=== PATIENT | male | born 1970 | race Caucasian/White ===

== ENCOUNTER 2017-10-09 10:09 | Emergency (ER) | payer OTHER ==
[2017-10-09] MEDS ORDERED: Albuterol/Ipratropium 3.0-0.5 MG/3 ML Neb Soln NEB ONE (10:23)
[2017-10-09] MEDS ORDERED: methylPREDNISolone Sodium Succinate 125 MG/2 ML SDV IM ONE (10:23)
--- NOTE | 2017-10-09 10:24 | EDM.PDOC ---
ED HPI GENERAL MEDICAL PROBLEM - General Chief Complaint: Respiratory Problem Stated Complaint: FEVER AND COLD Time Seen by Provider: 10/09/17 10:24 Source of Information: Reports: Patient - History of Present Illness INITIAL COMMENTS - FREE TEXT/NARRATIVE: HISTORY AND PHYSICAL: History of present illness: [Patient presents with cough increasing in severity over the last week he has a pneumonia exposure through his possible states they shared a mass for ventilation which causes him concern he has no fever nausea vomiting chills sweats no chest pain no diaphoresis no headache dizziness or palpitation no bowel or urine symptoms ] patient is nicotine dependent smoking 1 pack of cigarettes daily Review of systems: As per history of present illness and below otherwise all systems reviewed and negative. Past medical history: As per history of present illness and as reviewed below otherwise noncontributory. Surgical history: As per history of present illness and as reviewed below otherwise noncontributory. Social history: No reported history of drug or alcohol abuse. Family history: As per history of present illness and as reviewed below otherwise noncontributory. Physical exam: HEENT: Atraumatic, normocephalic, pupils reactive, negative for conjunctival pallor or scleral icterus, mucous membranes moist, throat clear, neck supple, nontender, trachea midline. Lungs: Clear to auscultation, breath sounds equal bilaterally, chest nontender. post DuoNeb and Solu-Medrol Heart: S1S2, regular, negative for clicks, rubs, or JVD. Abdomen: Soft, nondistended, nontender. Negative for masses or hepatosplenomegaly. Negative for costovertebral tenderness. Pelvis: Stable nontender. Genitourinary: Deferred. Rectal: Deferred. Extremities: Atraumatic, negative for cords or calf pain. Neurovascular unremarkable. Neuro: Awake, alert, oriented. Cranial nerves II through XII unremarkable. Cerebellum unremarkable. Motor and sensory unremarkable throughout. Exam nonfocal. Diagnostics: [Nursing staff had ordered EKG on arrival per protocol however patient refused Chest 2 views ] Therapeutics: [DuoNeb Solu-Medrol 125 mg IM ] Z-Zev Medrol Dosepak HFA Impression: [ acute bronchitis ] Definitive disposition and diagnosis as appropriate pending reevaluation and review of above. headache and chest tightness Pain Score (Numeric/FACES): 4 - Related Data Allergies Allergy/AdvReac Type Severity Reaction Status Date / Time No Known Allergies Allergy Verified 10/09/17 10:23 Home Meds: Home Meds Lisinopril/Hydrochlorothiazide [Lisinopril-Hctz 20-12.5 mg Tab] 1 each PO DAILY 10/09/17 [History] ED ROS GENERAL - Review of Systems Review Of Systems: ROS reveals no pertinent complaints other than HPI. ED EXAM, GENERAL - Physical Exam Exam: See Below Course - Vital Signs Last Recorded V/S: Last Vital Signs Temp 97.3 F 10/09/17 10:10 Pulse 99 10/09/17 10:10 Resp 20 10/09/17 10:10 BP 150/87 H 10/09/17 10:10 Pulse Ox 98 10/09/17 10:24 - Orders/Labs/Meds Orders: Active Orders 24 hr Category Date Time Status RT Aerosol Therapy [RC] ASDIRECTED Care 10/09/17 10:24 Active Chest 2V [CR] Stat Exams 10/09/17 10:21 Taken Meds: Medications Discontinued Medications Generic Name Dose Route Start Last Admin Trade Name Gini PRN Reason Stop Dose Admin Albuterol/Ipratropium 3 ml 10/09/17 10:23 10/09/17 10:28 Duoneb 3.0-0.5 Mg/3 Ml NEB 10/09/17 10:24 3 ml ONETIME ONE Administration Methylprednisolone Sodium Succinate 125 mg 10/09/17 10:23 10/09/17 10:28 Solu-Medrol IM 10/09/17 10:24 125 mg ONETIME ONE Administration Departure - Departure Time of Disposition: 11:15 Disposition: Home, Self-Care 01 Condition: Good Clinical Impression: Bronchitis - Discharge Information Referrals: PCP,None [Primary Care Provider] - Forms: ED Department Discharge Additional Instructions: The following information is given to patients seen in the emergency department who are being discharged to home. This information is to outline your options for follow-up care. We provide all patients seen in our emergency department with a follow-up referral. The need for follow-up, as well as the timing and circumstances, are variable depending upon the specifics of your emergency department visit. If you don't have a primary care physician on staff, we will provide you with a referral. We always advise you to contact your personal physician following an emergency department visit to inform them of the circumstance of the visit and for follow-up with them and/or the need for any referrals to a consulting specialist. The emergency department will also refer you to a specialist when appropriate. This referral assures that you have the opportunity for follow-up care with a specialist. All of these measure are taken in an effort to provide you with optimal care, which includes your follow-up. Under all circumstances we always encourage you to contact your private physician who remains a resource for coordinating your care. When calling for follow-up care, please make the office aware that this follow-up is from your recent emergency room visit. If for any reason you are refused follow-up, please contact the [facility] emergency department at and asked to speak to the emergency department charge nurse. - My Orders Last 24 Hours: My Active Orders 10/09/17 10:21 Chest 2V [CR] Stat 10/09/17 10:24 RT Aerosol Therapy [RC] ASDIRECTED - Assessment/Plan Last 24 Hours: My Active Orders 10/09/17 10:21 Chest 2V [CR] Stat 10/09/17 10:24 RT Aerosol Therapy [RC] ASDIRECTED
--- NOTE | 2017-10-10 11:36 | CR ---
EXAM DATE: 10/09/17 PATIENT'S AGE: 47 Patient: KEYSHA OSBORNE Facility: [place], [place] Site . Site : 1970 Study: XRay Chest [id number]/6/2018 11:02:49 AM Ordering Physician: Fabiana Núñez Final Report: INDICATION: pain/sob TECHNIQUE: PA and lateral chest films are submitted. COMPARISON: None. FINDINGS: Heart size and pulmonary vasculature within normal limits. Lung car are clear. IMPRESSION: No active disease. Dictated by Shaji Dykes MD @ 10/09/2017 11:10:15 AM Dictated by: Shaji Dykes MD @ 10/09/2017 11:10:26 (Electronic Signature) Report Signed by Proxy. [facility]
== END 2017-10-09 11:26 | disposition home or self-care (01) ==
LOC: MW.ED 10:09
DX: J20.9 Acute bronchitis, unspecified (principal); F17.210 Nicotine dependence, cigarettes, uncomplicated; Z79.899 Other long term (current) drug therapy
CPT/HCPCS: 71046; 94640; 96372; 99283; J2930

== ENCOUNTER 2017-12-05 20:29 | Emergency (ER) | payer OTHER ==
--- NOTE | 2017-12-05 20:36 | EDM.PDOC ---
ED HPI GENERAL MEDICAL PROBLEM - General Chief Complaint: Lower Extremity Injury/Pain Stated Complaint: RIGHT KNEE PAIN Time Seen by Provider: 12/05/17 20:36 Source of Information: Reports: Patient History Limitations: Reports: No Limitations - History of Present Illness INITIAL COMMENTS - FREE TEXT/NARRATIVE: HISTORY AND PHYSICAL: History of present illness: 47-year-old male presenting to emergency department with right knee pain 3 days with past medical history of hypertension. Patient states he was in [place] over the weekend. States that they were walking around and when he got out of the car at [employer] he noticed that immediately after he had some mild right knee pain. He does not remember any trauma to the knee. States that he walked around [place] and around other casinos throughout the rest of the day with only mild right knee pain. The next morning he woke up and his knee was swollen with more pain and he was barely able to walk. He drove back here yesterday. States that he's had continued pain and swelling in the right knee. He has not taken anything for it. He denies any decreased strength, sensation, calf pain or history of coagulopathies. Denies any shortness of breath, chest pain, palpitations, syncopal episodes, or focal neurologic deficits. States that he was not drinking when he hurt his knee. Denies any previous injury to the knee. On exam there is significant swelling to the right knee as compared to the left. Patient is tender directly on the top of the patella as well as the medial tibial plateau and lateral tibial plateau. Difficult to examine secondary to increased swelling and pain with movement. No obvious joint instability however difficult to examine secondary to pain and swelling. Neurovascular intact, limited range of motion secondary to pain and swelling. No decrease in strength. Review of systems: As per history of present illness and below otherwise all systems reviewed and negative. Past medical history: As per history of present illness and as reviewed below otherwise noncontributory. Surgical history: As per history of present illness and as reviewed below otherwise noncontributory. Social history: No reported history of drug or alcohol abuse. Family history: As per history of present illness and as reviewed below otherwise noncontributory. Physical exam: HEENT: Atraumatic, normocephalic, pupils reactive, negative for conjunctival pallor or scleral icterus, mucous membranes moist, throat clear, neck supple, nontender, trachea midline. Lungs: Clear to auscultation, breath sounds equal bilaterally, chest nontender. Heart: S1S2, regular, negative for clicks, rubs, or JVD. Abdomen: Soft, nondistended, nontender. Negative for masses or hepatosplenomegaly. Negative for costovertebral tenderness. Pelvis: Stable nontender. Genitourinary: Deferred. Rectal: Deferred. Extremities: Atraumatic, negative for cords or calf pain. Neurovascular unremarkable. Neuro: Awake, alert, oriented. Cranial nerves II through XII unremarkable. Cerebellum unremarkable. Motor and sensory unremarkable throughout. Exam nonfocal. Diagnostics: Right knee x-ray Therapeutics: Tordol 60 mg IM 1, meloxicam 15 mg by mouth daily #12, knee brace Impression: Right knee strain Plan: X-rays did not show any obvious bony abnormalities and I suspect that there was a strain/mild ligamental injury. As above very difficult to examine secondary to swelling and pain. Instructed patient to use rest, ice, compression, and elevation. Did give him a prescription for meloxicam 15 mg by mouth daily as well as referred him to be seen by orthopedics. He should call them tomorrow and tell them he was seen in emergency department and they wish for follow-up as soon as possible. Patient was in complete understanding and is told to return to emergency department if he had any new worsening symptoms. He was also given a work excuse. Right Knee Pain Score (Numeric/FACES): 8 - Related Data Allergies Allergy/AdvReac Type Severity Reaction Status Date / Time No Known Allergies Allergy Verified 10/09/17 10:23 Home Meds: Home Meds Lisinopril/Hydrochlorothiazide [Lisinopril-Hctz 20-12.5 mg Tab] 1 each PO DAILY 10/09/17 [History] Past Medical History Cardiovascular History: Reports: Hypertension - Infectious Disease History Infectious Disease History: Reports: None Social & Family History - Family History Family Medical History: Noncontributory Review of Systems - Review of Systems Review Of Systems: ROS reveals no pertinent complaints other than HPI. ED EXAM, GENERAL - Physical Exam Exam: See Below Course - Vital Signs Last Recorded V/S: Last Vital Signs Temp 98.2 F 12/05/17 20:45 Pulse 107 H 07/02/18 20:45 Resp 18 12/05/17 20:45 BP 149/105 H 12/05/17 20:45 Pulse Ox 96 12/05/17 20:45 - Orders/Labs/Meds Orders: Active Orders 24 hr Category Date Time Status Knee 3V Rt [CR] Stat Exams 12/05/17 20:55 Taken Meds: Medications Discontinued Medications Generic Name Dose Route Start Last Admin Trade Name Freq PRN Reason Stop Dose Admin Ketorolac Tromethamine 60 mg 12/05/17 21:05 12/05/17 21:31 Toradol IM 12/05/17 21:06 60 mg ONETIME ONE Administration Departure - Departure Time of Disposition: 22:16 Disposition: Home, Self-Care 01 Condition: Good Clinical Impression: Strain of right knee Qualifiers: Encounter type: initial encounter Qualified Code(s): S86.911A - Strain of unspecified muscle(s) and tendon(s) at lower leg level, right leg, initial encounter - Discharge Information Referrals: PCP,None [Primary Care Provider] - Forms: ED Department Discharge Additional Instructions: My general discharge The following information is given to patients seen in the emergency department who are being discharged to home. This information is to outline your options for follow-up care. We provide all patients seen in our emergency department with a follow-up referral. The need for follow-up, as well as the timing and circumstances, are variable depending upon the specifics of your emergency department visit. If you don't have a primary care physician on staff, we will provide you with a referral. We always advise you to contact your personal physician following an emergency department visit to inform them of the circumstance of the visit and for follow-up with them and/or the need for any referrals to a consulting specialist. The emergency department will also refer you to a specialist when appropriate. This referral assures that you have the opportunity for follow-up care with a specialist. All of these measure are taken in an effort to provide you with optimal care, which includes your follow-up. Under all circumstances we always encourage you to contact your private physician who remains a resource for coordinating your care. When calling for follow-up care, please make the office aware that this follow-up is from your recent emergency room visit. If for any reason you are refused follow-up, please contact the [facility] Emergency Department at and asked to speak to the emergency department charge nurse. [facility] [address], [address] [place] [address] Please call number above and stated that you were seen in the emergency department and they wish for you to have a follow-up for your right knee. Take medication as prescribed. Use rice as we discussed. Rest, ice, compression, elevation as well as anti- inflammatories. Return to emergency department if any new or worsening symptoms. - My Orders Last 24 Hours: My Active Orders 12/05/17 20:55 Knee 3V Rt [CR] Stat - Assessment/Plan Last 24 Hours: My Active Orders 12/05/17 20:55 Knee 3V Rt [CR] Stat
[2017-12-05] MEDS ORDERED: Ketorolac 60 MG/2 ML SDV IM ONE (21:05)
--- NOTE | 2017-12-06 09:16 | CR ---
EXAM DATE: 12/05/17 PATIENT'S AGE: 47 Patient: KEYSHA OSBORNE Facility: [place], [place] Site . Site : 1970 Study: XRay Knee Right [id number]/2/2018 9:32:14 PM Ordering Physician: Asael Mar Final Report: INDICATION: pain TECHNIQUE: Three views of the right knee COMPARISON: None FINDINGS: Bones: No fractures or bone lesions. Joint spaces: Unremarkable. Soft tissues: Prepatellar soft tissue swelling. IMPRESSION: Prepatellar soft tissue swelling. No acute bony abnormality Dictated by Hakeem Salinas MD @ 12/05/2017 10:01:01 PM Dictated by: Hakeem Salinas MD @ 12/05/2017 22:01:07 (Electronic Signature) Report Signed by Proxy. [facility]
== END 2017-12-05 22:23 | disposition home or self-care (01) ==
LOC: MW.ED 20:29
DX: S86.911A Strain of unspecified muscle(s) and tendon(s) at lower leg level, right leg, initial encounter (principal); I10 Essential (primary) hypertension; X58.XXXA Exposure to other specified factors, initial encounter
CPT/HCPCS: 73562; 96372; 99283; J1885; 99282

== ENCOUNTER 2018-03-13 07:00 | Day surgery (SDC) | payer OTHER ==
[~2018-03-13 07:00] MED LIST: Lactated Ringers 1,000 ML IV SCH; Lidocaine 2% 5 ML SDV ONE; Midazolam 1 MG/ML 2 ML SDV ONE; Ondansetron 4 MG/2 ML SDV ONE; Propofol 200 MG/20 ML SDV ONE; fentaNYL 250 MCG/5 ML SDV ONE
[2018-03-13] MEDS ORDERED: Sodium Chloride 0.9% 2.5 ML Syringe FLUSH PRN (07:05)
[2018-03-13] MEDS ORDERED: Sodium Chloride 0.9% 10 ML Syringe FLUSH PRN (07:05)
[2018-03-13] MEDS ORDERED: fentaNYL 100 MCG/2 ML SDV IVPUSH PRN (07:05)
[2018-03-13] MEDS ORDERED: ceFAZolin 2 GM in Premix Bag 1 BAG IV SCH (08:00)
[2018-03-13] MEDS ORDERED: Acetaminophen/HYDROcodone 325-5 MG Tab PO PRN (08:00)
--- NOTE | 2018-03-13 08:32 | PCM.PREANE ---
Preanesthetic Assessment - Procedure Proposed Procedure: Right knee arthroscopy - Anesthesia/Transfusion/Family Hx Anesthesia History: No Prior Anesthesia Family History of Anesthesia Reaction: No Transfusion History: No Prior Transfusion(s) Intubation History: Unknown Additional History: sleep apnea suspected by patient - Review of Systems General: Other (obesity) Pulmonary: Other (smoker 1+ pack per day) Cardiovascular: Other (HTN/HLD) Gastrointestinal: No Symptoms Neurological: Gait Disturbance (due to right knee), Other (hearing impairment) Other: Reports: Diabetes (type II - chose no treatments) - Physical Assessment NPO Status Date: 03/12/18 NPO Status Time: 20:00 O2 Sat by Pulse Oximetry: 95 Respiratory Rate: 18 Vital Signs: Last Vital Signs Temp 97.0 F 03/13/18 07:55 Pulse 88 03/13/18 07:55 Resp 18 03/13/18 07:55 BP 136/100 H 03/13/18 07:55 Pulse Ox 95 03/13/18 07:55 Height: 5 ft 9 in Weight: 230 lb ASA Class: 3 Mental Status: Alert & Oriented x3 Airway Class: Mallampati = 3 Dentition: Reports: Normal Dentition, Caries Thyro-Mental Finger Breadths: 3 Mouth Opening Finger Breadths: 3 ROM/Head Extension: Limited/Partial (short ,full neck) Lungs: Clear to Auscultation, Normal Respiratory Effort Cardiovascular: Regular Rate, Regular Rhythm - Allergies Allergies/Adverse Reactions: Allergies Allergy/AdvReac Type Severity Reaction Status Date / Time No Known Allergies Allergy Verified 03/09/18 16:26 - Blood Blood Available: No Product(s) Available: None - Anesthesia Plan Pre-Op Medication Ordered: None - Acknowledgements Anesthesia Type Planned: General Anesthesia (LMA vs OET) Pt an Appropriate Candidate for the Planned Anesthesia: Yes Alternatives and Risks of Anesthesia Discussed w Pt/Guardian: Yes Pt/Guardian Understands and Agrees with Anesthesia Plan: Yes PreAnesthesia Questionnaire HEENT History: Reports: Hard of Hearing, Other (See Below) Other HEENT History: wears glasses Cardiovascular History: Reports: Heart Murmur, Hypertension Respiratory History: Reports: Other (See Below) Other Respiratory History: thinks he might have sleep apnea Endocrine/Metabolic History: Reports: Diabetes, Type II, Obesity/BMI 30+ Other Endocrine/Metabolic History: is trying to control diabetes with diet and exercise - Infectious Disease History Infectious Disease History: Reports: None - SUBSTANCE USE Smoking Status *Q: Current Every Day Smoker Tobacco Use Within Last Twelve Months: Cigarettes Recreational Drug Use History: No - HOME MEDS Home Medications: Home Meds Lisinopril/Hydrochlorothiazide [Lisinopril-Hctz 20-12.5 mg Tab] 1 each PO BID [History] Fish Oil/[place]-3 Fatty Acids [Fish Oil 1,000 MG] 2 gm PO BID 03/09/18 [History] Sildenafil Citrate [Sildenafil] 100 mg PO ASDIRECTED PRN 03/09/18 [History] - CURRENT (IN HOUSE) MEDS Current Meds: Current Medications Hydrocodone Bitart/Acetaminophen ([place] 325-5 Mg) 1 - 2 tab PO Q4H PRN PRN Reason: Pain Fentanyl (Sublimaze) 50 mcg IVPUSH Q5M PRN PRN Reason: Pain (severe 7-10) Stop: 03/14/18 07:05 Cefazolin Sodium/Dextrose 2 gm (/ Premix) 50 mls @ 100 mls/hr IV ONCALL VALORIE Lactated Ringer's (Ringers, Lactated) 1,000 mls @ 100 mls/hr IV ASDIRECTED VALORIE Last Admin: 03/13/18 08:09 Dose: 100 mls/hr Sodium Chloride (Saline Flush) 10 ml FLUSH ASDIRECTED PRN PRN Reason: Keep Vein Open Sodium Chloride (Saline Flush) 2.5 ml FLUSH ASDIRECTED PRN PRN Reason: Keep Vein Open Discontinued Medications Fentanyl (Sublimaze) Confirm Administered Dose 250 mcg .ROUTE .STK-MED ONE Stop: 03/13/18 06:45 Lidocaine (Xylocaine-Mpf 2%) Confirm Administered Dose 5 ml .ROUTE .STK-MED ONE Stop: 03/13/18 06:45 Midazolam HCl (Versed 1 Mg/Ml) Confirm Administered Dose 2 mg .ROUTE .STK-MED ONE Stop: 03/13/18 06:45 Ondansetron HCl (Zofran) Confirm Administered Dose 4 mg .ROUTE .STK-MED ONE Stop: 03/13/18 06:45 Propofol (Diprivan 20 Ml) Confirm Administered Dose 200 mg .ROUTE .STK-MED ONE Stop: 03/13/18 06:45
[2018-03-13] MEDS ORDERED: Sodium Chloride 0.9% 20 ML ONE (09:05)
[2018-03-13] MEDS ORDERED: ceFAZolin 1 GM Vial ONE (09:05)
[2018-03-13] MEDS ORDERED: ePHEDrine 50 MG/ML SDV ONE (09:09)
--- NOTE | 2018-03-13 09:35 | PCM.OPNOTE ---
- General Post-Op/Procedure Note Date of Surgery/Procedure: 03/13/18 Operative Procedure(s): R knee arthroscopy with chondroplasty of the medial femoral condyle and limited synovectomy with excision of medial plica and fat pad Pre Op Diagnosis: R knee medial mensicus tear, fat pad impingement Post-Op Diagnosis: R knee DJD, medial plica Anesthesia Technique: General LMA Primary Surgeon: Radha Manjarrez Molder Inflated Ball: Nel Ha in mLs: 5 Condition: Good Free Text/Narrative:: TT=12 MIN # [id number]
--- NOTE | 2018-03-13 09:38 | PCM.POSTAN ---
POST ANESTHESIA ASSESSMENT - MENTAL STATUS Mental Status: Alert, Oriented - RESPIRATORY Respiratory Status: Respiratory Rate WNL, Airway Patent, O2 Saturation Stable - CARDIOVASCULAR CV Status: Pulse Rate WNL, Blood Pressure Stable - GASTROINTESTINAL GI Status: No Symptoms - POST OP HYDRATION Hydration Status: Adequate & Stable
--- NOTE | 2018-03-13 10:44 | PCM48HPAN ---
Post Anesthesia Note - EVALUATION WITHIN 48HRS OF ANESTHETIC Vital Signs in Normal Range: Yes Patient Participated in Evaluation: Yes Respiratory Function Stable: Yes Airway Patent: Yes Cardiovascular Function Stable: Yes Hydration Status Stable: Yes Pain Control Satisfactory: Yes Nausea and Vomiting Control Satisfactory: Yes Mental Status Recovered: Yes Resp Rate: 15 - COMMENTS/OBSERVATIONS Free Text/Narrative:: OK for discharge to home accompanied.
--- NOTE | 2018-03-13 11:19 | OR ---
SURGEON: Radha Manjarrez MD DATE OF PROCEDURE: 03/13/2018 PREOPERATIVE DIAGNOSES: 1. Right knee medial meniscus tear. 2. Right knee fat pad impingement. POSTOPERATIVE DIAGNOSES: 1. Right knee degenerative joint disease. 2. Right knee medial plica with fat pad impingement. PROCEDURE: Right knee arthroscopy with chondroplasty of the medial femoral condyle and limited synovectomy with excision of medial plica and fat pad. PANEL MACHINE OPERATOR: Nel Ha PA-C ANESTHESIA: General. ESTIMATED BLOOD LOSS: 5 mL. TOURNIQUET TIME: 12 minutes. COMPLICATIONS: None. DVT PROPHYLAXIS: Not indicated. IMPLANTS USED: None. BRIEF HISTORY: Ilya is a 47-year-old male who has had complaint of progressive right knee pain. An MRI did show a possible tear of the medial meniscus along with evidence of fat pad impingement. Due to his lack of response to conservative treatment, I did recommend surgical intervention. The risks and goals of procedure were discussed with the patient and were documented preoperatively. He agreed to proceed. DESCRIPTION OF PROCEDURE: The patient was properly identified and brought to the operating room. He was transferred from the OR cart and placed on the operating room table in supine position. General anesthesia was administered. After adequate anesthesia was obtained, a well-padded tourniquet was applied to the right lower extremity. The right lower extremity was then prepped in standard fashion using ChloraPrep solution. It was then sterilely draped. A time-out was performed to ensure correct site and procedure. Preoperative antibiotics were given. The surgical site had been marked preoperatively. An Esmarch was used to exsanguinate the right lower extremity and the tourniquet was inflated to 250 mmHg. A lateral portal arthrotomy was established. Blunt trocar and cannula were introduced into the suprapatellar pouch. Camera, inflow, and outflow were assembled. The suprapatellar pouch showed no significant synovitis. The patellofemoral joint was visualized. Minor degenerative changes were noted with no full-thickness cartilage loss. The patella appeared to track centrally. The fat pad did impinge within the patellofemoral joint with flexion and extension of the knee. I then extended down the lateral gutter. No loose bodies were identified. As I attempted to extend down the medial gutter, it was found that he had a remnant of a medial plica. This appeared to be causing some impingement along the medial femoral condyle. I then examined the medial gutter and no loose bodies were identified. I then entered the medial compartment. A medial portal arthrotomy was established. A blunt probe was inserted. The meniscus was extensively probed. Although, there was minor degenerative fraying centrally, no full-thickness tear was appreciated. There was no evidence of instability. The medial femoral condyle showed diffuse grade 3 chondromalacia along the weightbearing surface with some loose cartilage flaps. A 4.5 mm shaver was used to perform a chondroplasty and remove the loose pieces of cartilage. The medial tibial plateau showed diffuse grade 2 degenerative changes. I then entered the notch. Both the ACL and PCL were visualized and probed and found to be intact. I then entered the lateral compartment. He did have some superficial fissuring of the lateral tibial plateau; however, these were probed and found to be not full thickness. The meniscus showed no significant degenerative findings and no evidence of instability or tearing. I then went back to the suprapatellar pouch. The shaver was used to resect the portion of the fat pad that appeared to be impinging. The medial plica was also resected without difficulty. There were some mild degenerative changes beneath the medial femoral condyle, presumed to be due to the plica. Instruments were then removed from the knee. The portal sites were closed with 3-0 nylon. 1% Lidocaine was injected along the portal tracts. Xeroform gauze was placed over the wound and a bulky dressing was applied. The tourniquet was then deflated. He was awakened from his anesthetic and transferred back to the operating room cart. He was brought to recovery room in stable condition. All needle and sponge counts were correct. SAWYER / JEROME /[id number]
== END 2018-03-13 10:50 | disposition home or self-care (01) ==
LOC: MW.SDS 07:00
PROVIDERS: ATTEND Orthopaedic Surgery
DX: M23.203 Derangement of unspecified medial meniscus due to old tear or injury, right knee (principal); M79.4 Hypertrophy of (infrapatellar) fat pad; M67.51 Plica syndrome, right knee; M94.261 Chondromalacia, right knee; I10 Essential (primary) hypertension; E11.9 Type 2 diabetes mellitus without complications; E78.5 Hyperlipidemia, unspecified; F17.210 Nicotine dependence, cigarettes, uncomplicated; E66.9 Obesity, unspecified
CPT/HCPCS: 29875; J0690; J2250; J2405; J2704; J3010; J7120; 01400

== ENCOUNTER 2019-05-15 12:39 | Emergency (ER) | payer OTHER ==
[2019-05-15] MEDS ORDERED: Albuterol/Ipratropium 3.0-0.5 MG/3 ML Neb Soln NEB ONE (12:55)
--- NOTE | 2019-05-15 12:55 | EDM.PDOC ---
ED HPI GENERAL MEDICAL PROBLEM - General Chief Complaint: General Stated Complaint: HURT LFT SIDE IN RIB AREA Time Seen by Provider: 05/15/19 12:46 Source of Information: Reports: Patient History Limitations: Reports: No Limitations - History of Present Illness INITIAL COMMENTS - FREE TEXT/NARRATIVE: HISTORY AND PHYSICAL: History of present illness: Patient is a 49 year old male who presents to the ED with c/o left rib pain. He states he was outside and felt a sharp pain to his left lower anterior chest after aggressively coughing. Since he has had pain with movement, deep breathing , and coughing. He is a daily, mcfp smoker. Patient denies any fever, chills, headache, change in vision, syncope or near syncope. Denies any chest pain, back pain, or shortness of breath. Denies any abdominal pain, nausea, vomiting, diarrhea, constipation or dysuria. Has not noted any blood in urine or stool. Patient has been eating and drinking appropriately. Review of systems: As per history of present illness and below otherwise all systems reviewed and negative. Past medical history: As per history of present illness and as reviewed below otherwise noncontributory. Surgical history: As per history of present illness and as reviewed below otherwise noncontributory. Social history: See social history for further information Family history: As per history of present illness and as reviewed below otherwise noncontributory. Physical exam: General: Well developed and well nourished 49 year old male. A&O x 3. Nontoxic appearing and in no acute distress. HEENT: Atraumatic, normocephalic, pupils equal and reactive bilaterally, negative for conjunctival pallor or scleral icterus, mucous membranes moist, TMs normal bilaterally, throat clear, neck supple, nontender, trachea midline. No drooling or trismus noted. No meningeal signs. No hot potato voice noted. Lungs: Fine expiratory wheezing to bases bilaterally/diminished, breath sounds equal bilaterally, anterior left lower chest painful to palpation. Heart: S1S2, regular rate and rhythm without overt murmur Abdomen: Soft, nondistended, nontender. Negative for masses or hepatosplenomegaly. Negative for costovertebral tenderness. Pelvis: Stable nontender. Skin: Intact, warm, dry. No lesions or rashes noted. Extremities: Atraumatic, moves all extremities per self without difficulty or deficits, negative for cords or calf pain. Neurovascular unremarkable. Neuro: Awake, alert, oriented. Cranial nerves II through XII unremarkable. Cerebellum unremarkable. Motor and sensory unremarkable throughout. Exam nonfocal. Notes: Patient refused duo-neb. CXR and labs are unremarkable. Due to his longstanding smoking history and vitals, will give abx. We discussed signs and symptoms that would prompt him to return to the ED. Supportive care measures were reviewed and discussed. Voices understanding and is agreeable to plan of care. Denies any further questions or concerns at this time. Diagnostics: CBC, CMP, D.Dimer, CXR Therapeutics: Duo Neb Prescription: Zpak Pro- Air Impression: Bronchitis Plan: 1. Stop Smoking 2. Take medications as prescribed. 3. Follow up with your primary care provider. Return to the ED as needed as discussed. Definitive disposition and diagnosis as appropriate pending reevaluation and review of above. Left Abdomen Pain Score (Numeric/FACES): 8 - Related Data Allergies Allergy/AdvReac Type Severity Reaction Status Date / Time No Known Allergies Allergy Verified 05/15/19 12:43 Home Meds: Home Meds Lisinopril/Hydrochlorothiazide [Lisinopril-Hctz 20-12.5 mg Tab] 1 each PO BID [History] Fish Oil/Easton-3 Fatty Acids [Fish Oil 1,000 MG] 2 gm PO BID 03/09/18 [History] Sildenafil Citrate 100 mg PO ASDIRECTED PRN 03/09/18 [History] Past Medical History HEENT History: Reports: Hard of Hearing, Other (See Below) Other HEENT History: wears glasses Cardiovascular History: Reports: Heart Murmur, Hypertension Respiratory History: Reports: Other (See Below) Other Respiratory History: thinks he might have sleep apnea Endocrine/Metabolic History: Reports: Diabetes, Type II, Obesity/BMI 30+ Other Endocrine/Metabolic History: is trying to control diabetes with diet and exercise - Infectious Disease History Infectious Disease History: Reports: Chicken Pox - Past Surgical History Musculoskeletal Surgical History: Reports: Other (See Below) Other Musculoskeletal Surgeries/Procedures:: Right knee surgery Social & Family History - Family History Family Medical History: Noncontributory - Tobacco Use Smoking Status *Q: Current Every Day Smoker Years of Tobacco use: 20 Packs/Tins Daily: 2 - Caffeine Use Caffeine Use: Reports: Tea - Recreational Drug Use Recreational Drug Use: No ED ROS GENERAL - Review of Systems Review Of Systems: Comprehensive ROS is negative, except as noted in HPI. ED EXAM, GENERAL - Physical Exam Exam: See Below (See dictation) Course - Vital Signs Last Recorded V/S: Last Vital Signs Temp 98.0 F 05/15/19 14:20 Pulse 99 05/15/19 14:20 Resp 18 05/15/19 12:44 BP 149/93 H 05/15/19 14:20 Pulse Ox 93 L 05/15/19 14:20 - Orders/Labs/Meds Orders: Active Orders 24 hr Category Date Time Status RT Aerosol Therapy [RC] ASDIRECTED Care 05/15/19 12:55 Active Labs: Laboratory Tests 05/15/19 05/15/19 05/15/19 Range/Units 13:14 13:14 13:14 WBC 8.59 (4.0-11.0) K/uL RBC 4.96 (4.50-5.90) M/uL Hgb 16.3 (13.0-17.0) g/dL Hct 46.1 (38.0-50.0) % MCV 92.9 (80.0-98.0) fL MCH 32.9 H (27.0-32.0) pg MCHC 35.4 (31.0-37.0) g/dL RDW Std Deviation 47.3 (28.0-62.0) fl RDW Coeff of Dori 14 (11.0-15.0) % Plt Count 197 (150-400) K/uL MPV 11.10 (7.40-12.00) fL Neut % (Auto) 69.5 (48.0-80.0) % Lymph % (Auto) 24.7 (16.0-40.0) % Dougherty % (Auto) 3.6 (0.0-15.0) % Eos % (Auto) 2.0 (0.0-7.0) % Baso % (Auto) 0.2 (0.0-1.5) % Neut # (Auto) 6.0 H (1.4-5.7) K/uL Lymph # (Auto) 2.1 (0.6-2.4) K/uL Dougherty # (Auto) 0.3 (0.0-0.8) K/uL Eos # (Auto) 0.2 (0.0-0.7) K/uL Baso # (Auto) 0.0 (0.0-0.1) K/uL Nucleated RBC % 0.0 /100WBC Nucleated RBCs # 0 K/uL D-Dimer, Quantitative 0.33 (0.0-0.50) mg/L FEU Sodium 137 (136-148) mmol/L Potassium 3.7 (3.5-5.1) mmol/L Chloride 99 (98-107) mmol/L Carbon Dioxide 28.4 (21.0-32.0) mmol/L BUN 17 (7.0-18.0) mg/dL Creatinine 1.3 (0.8-1.3) mg/dL Est Cr Clr Drug Dosing 68.74 mL/min Estimated GFR (MDRD) 58.7 ml/min Glucose 281 H (74-106) mg/dL Calcium 9.1 (8.5-10.1) mg/dL Total Bilirubin 0.4 (0.2-1.0) mg/dL AST 24 (15-37) IU/L ALT 56 (14-63) IU/L Alkaline Phosphatase 76 (46-116) U/L Total Protein 7.8 (6.4-8.2) g/dL Albumin 3.8 (3.4-5.0) g/dL Globulin 4.0 (2.6-4.0) g/dL Albumin/Globulin Ratio 0.9 (0.9-1.6) Meds: Medications Discontinued Medications Generic Name Dose Route Start Last Admin Trade Name Freq PRN Reason Stop Dose Admin Albuterol/Ipratropium 3 ml 05/15/19 12:55 05/15/19 13:28 Duoneb 3.0-0.5 Mg/3 Ml NEB 05/15/19 12:56 Not Given ONETIME ONE Departure - Departure Time of Disposition: 14:15 Disposition: Home, Self-Care 01 Clinical Impression: Bronchitis - Discharge Information Instructions: Acute Bronchitis, Adult Referrals: PCP,Unobtain [Primary Care Provider] - Forms: ED Department Discharge Additional Instructions: The following information is given to patients seen in the emergency department who are being discharged to home. This information is to outline your options for follow-up care. We provide all patients seen in our emergency department with a follow-up referral. The need for follow-up, as well as the timing and circumstances, are variable depending upon the specifics of your emergency department visit. If you don't have a primary care physician on staff, we will provide you with a referral. We always advise you to contact your personal physician following an emergency department visit to inform them of the circumstance of the visit and for follow-up with them and/or the need for any referrals to a consulting specialist. The emergency department will also refer you to a specialist when appropriate. This referral assures that you have the opportunity for follow-up care with a specialist. All of these measure are taken in an effort to provide you with optimal care, which includes your follow-up. Under all circumstances we always encourage you to contact your private physician who remains a resource for coordinating your care. When calling for follow-up care, please make the office aware that this follow-up is from your recent emergency room visit. If for any reason you are refused follow-up, please contact the [facility] Emergency Department at and asked to speak to the emergency department charge nurse. [facility] [address] [place] [address] [place] [address] 1. Stop Smoking 2. Take medications as prescribed. 3. Follow up with your primary care provider. Return to the ED as needed as discussed. Sepsis Event Note - Evaluation Sepsis Screening Result: No Definite Risk - Focused Exam Vital Signs: Vital Signs Temp Pulse Resp BP Pulse Ox 05/15/19 14:20 98.0 F 99 149/93 H 93 L 05/15/19 12:44 96.7 F 103 H 18 165/96 H 94 L Date Exam was Performed: 05/15/19 Time Exam was Performed: 14:40 - My Orders Last 24 Hours: My Active Orders 05/15/19 12:55 RT Aerosol Therapy [RC] ASDIRECTED - Assessment/Plan Last 24 Hours: My Active Orders 05/15/19 12:55 RT Aerosol Therapy [RC] ASDIRECTED
[2019-05-15 13:50] LABS: CARBON DIOXIDE,CO2 28.4 mmol/L (21.0-32.0); POTASSIUM,K 3.7 mmol/L (3.5-5.1)
--- NOTE | 2019-05-15 13:58 | CR ---
EXAM DATE: 05/15/19 PATIENT'S AGE: 49 Chest: Two views of the chest were obtained. Comparison: Prior chest x-ray of 10/09/17. Heart size and mediastinum are within normal limits. Lungs are clear with no acute parenchymal change. Bony structures appear within normal limits for the patient's age. Impression: 1. Nothing acute is seen on two view chest x-ray. Diagnostic code #1 This report was dictated in Mountain Standard Time Report Signed by Proxy. SHIRA
== END 2019-05-15 14:38 | disposition home or self-care (01) ==
LOC: MW.ED 12:39
DX: J40 Bronchitis, not specified as acute or chronic (principal); I10 Essential (primary) hypertension; E11.9 Type 2 diabetes mellitus without complications; E66.9 Obesity, unspecified; Z68.33 Body mass index [BMI] 33.0-33.9, adult; F17.210 Nicotine dependence, cigarettes, uncomplicated; Z79.899 Other long term (current) drug therapy
CPT/HCPCS: 36415; 71046; 71046-26; 80053; 85025; 85379; 99284; 99285-25

== ENCOUNTER 2019-06-27 00:17 | Emergency (ER) | payer OTHER ==
--- NOTE | 2019-06-27 02:24 | EDM.PDOC ---
ED HPI GENERAL MEDICAL PROBLEM - General Chief Complaint: Respiratory Problem Stated Complaint: RESPIRATORY ISSUES Time Seen by Provider: 06/27/19 00:48 Source of Information: Reports: Patient History Limitations: Reports: No Limitations - History of Present Illness INITIAL COMMENTS - FREE TEXT/NARRATIVE: HISTORY OF PRESENT ILLNESS: Patient is a 49-year-old male who states he recently traveled from the [facility] to the airport in [facility] then to [place] to [place] and then to [place] and has a 3 day history of cough , sore throat and tactile fever. Denies dyspnea. No wheezing. Denies any abdominal pain, vomiting or diarrhea. Has mild chest wall soreness from coughing. No retrosternal chest pain. Cough is productive of clear sputum and denies any hemoptysis. No syncope. No chest pain denies any abdominal pain. Denies myalgias. No rash or neck stiffness pt was not in [facility] but has been watching the news and is concerned he has coronavirus. REVIEW OF SYSTEMS: Other than the symptoms associated with the present events, the following is reported with regard to recent health: General: (+)tactile fever. HENT: (-) congestion. Respiratory: (+) cough. Cardiovascular: (-) chest pain. GI: (-) abdominal pain. : (-) urinary complaints. Musculoskeletal: (-) other aches or pains. Endocrine: (-) generalized weakness. Neurological: (-) localized weakness. Skin: (-) rash PAST MEDICAL HISTORY: reviewed as per nursing notes SOCIAL HISTORY: reviewed as per nursing notes, MEDICATIONS: Per nurse's note ALLERGIES: Per nurse's note, reviewed by me PHYSICAL EXAMINATION: GENERALIZED APPEARANCE: well developed, well nourished in no distress VITAL SIGNS: Per nurse's note, reviewed by me SKIN: Warm, dry; (-) cyanosis; (-) rash. HEAD: (-) scalp swelling, (-) tenderness. EYES: (-) conjunctival pallor, (-) scleral icterus. ENMT: (-) stridor; mucous membranes moist. no pharyngeal erythema. uvula midline. no phonation changes. no trismus NECK: (-) tenderness, (-) stiffness, no meningismus. CHEST AND RESPIRATORY: (-) rales, (-) rhonchi, (-) wheezes; breath sounds equal bilaterally. HEART AND CARDIOVASCULAR: (-) irregularity; (-) murmur, (-) gallop. ABDOMEN AND GI: Soft; (-) tenderness, (-) guarding, (-) rebound, (-) palpable masses, EXTREMITIES: (-) deformity, (-) edema. NEURO AND PSYCH: Alert. Cranial nerves grossly intact; strength symmetric. gait steady DIAGNOSTICS: Influenza neg strep neg CXR: neg as per radiologist EMERGENCY DEPARTMENT COURSE AND TREATMENT: Patient's condition remained stable during Emergency Department evaluation. Based on my history, physical exam, and diagnostic evaluation, the patient appears to have symptoms consistent with URI. There is a normal heart rate, normal oxygen saturation, a normal respiratory pattern on reevaluation and non-diagnostic exam. The patient appeared to be in no distress, appeared well-hydrated and was ambulating in the ED without difficulty. Discharge precautions were given with instructions to return if difficulty breathing, not tolerating oral food or fluids, any respiratory distress, or new symptoms. I encouraged follow-up with the primary care physician in 1-2 days for repeat exam. Do not suspect Coronavirus based on sx and history. PLAN AND FOLLOW-UP: Patient received written and verbal instructions regarding this condition. Return to ED immediately with any new or worsening symptoms. Follow up to be arranged by patient with pcp in 1-2 days for further evaluation. Given discharge precautions. Patient expressed verbal understanding. Throat Pain Score (Numeric/FACES): 5 - Related Data Allergies Allergy/AdvReac Type Severity Reaction Status Date / Time No Known Allergies Allergy Verified 06/27/19 00:34 Home Meds: Home Meds Lisinopril/Hydrochlorothiazide [Lisinopril-Hctz 20-12.5 mg Tab] 1 each PO BID [History] Fish Oil/[place]-3 Fatty Acids [Fish Oil 1,000 MG] 2 gm PO BID 03/09/18 [History] Sildenafil Citrate 100 mg PO ASDIRECTED PRN 03/09/18 [History] Past Medical History HEENT History: Reports: Hard of Hearing, Other (See Below) Other HEENT History: wears glasses Cardiovascular History: Reports: Heart Murmur, Hypertension Respiratory History: Reports: None Other Respiratory History: thinks he might have sleep apnea Gastrointestinal History: Reports: None Genitourinary History: Reports: None Neurological History: Reports: None Psychiatric History: Reports: None Endocrine/Metabolic History: Reports: Obesity/BMI 30+, Other (See Below) Other Endocrine/Metabolic History: 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 Hematologic History: Reports: None Immunologic History: Reports: None Oncologic (Cancer) History: Reports: None Dermatologic History: Reports: None - Infectious Disease History Infectious Disease History: Reports: Chicken Pox - Past Surgical History Head Surgeries/Procedures: Reports: None Musculoskeletal Surgical History: Reports: Other (See Below) Other Musculoskeletal Surgeries/Procedures:: Right knee surgery Social & Family History - Family History Family Medical History: Noncontributory - Tobacco Use Smoking Status *Q: Current Every Day Smoker Years of Tobacco use: 20 Packs/Tins Daily: 1 - Caffeine Use Caffeine Use: Reports: Tea - Recreational Drug Use Recreational Drug Use: No ED ROS GENERAL - Review of Systems Review Of Systems: See Below (see dictation) ED EXAM, GENERAL - Physical Exam Exam: See Below (see dictation) Course - Vital Signs Last Recorded V/S: Last Vital Signs Temp 97.5 F 06/27/19 02:41 Pulse 91 06/27/19 02:41 Resp 20 06/27/19 02:41 BP 145/91 H 06/27/19 02:41 Pulse Ox 97 06/27/19 02:41 - Orders/Labs/Meds Orders: Active Orders 24 hr Category Date Time Status CULTURE STREP A CONFIRMATION [] Stat Lab 06/27/19 00:40 Results STREP SCRN A RAPID W CULT CONF [RM] Stat Lab 06/27/19 00:40 Results Departure - Departure Time of Disposition: 02:41 Disposition: Home, Self-Care 01 Condition: Good Clinical Impression: Viral upper respiratory illness - Discharge Information *PRESCRIPTION DRUG MONITORING PROGRAM REVIEWED*: Not Applicable *COPY OF PRESCRIPTION DRUG MONITORING REPORT IN PATIENT NAM: Not Applicable Instructions: Viral Respiratory Infection, Xrox-Ir-Fctt Referrals: Hodan Armendariz [Ordering Only Provider] - 1 Day Forms: ED Department Discharge Additional Instructions: The following information is given to patients seen in the emergency department who are being discharged to home. This information is to outline your options for follow-up care. We provide all patients seen in our emergency department with a follow-up referral. The need for follow-up, as well as the timing and circumstances, are variable depending upon the specifics of your emergency department visit. If you don't have a primary care physician on staff, we will provide you with a referral. We always advise you to contact your personal physician following an emergency department visit to inform them of the circumstance of the visit and for follow-up with them and/or the need for any referrals to a consulting specialist. The emergency department will also refer you to a specialist when appropriate. This referral assures that you have the opportunity for follow-up care with a specialist. All of these measure are taken in an effort to provide you with optimal care, which includes your follow-up. Under all circumstances we always encourage you to contact your private physician who remains a resource for coordinating your care. When calling for follow-up care, please make the office aware that this follow-up is from your recent emergency room visit. If for any reason you are refused follow-up, please contact the [facility] Emergency Department at and asked to speak to the emergency department charge nurse. Sepsis Event Note - Evaluation Sepsis Screening Result: Possible Sepsis Risk - Focused Exam Vital Signs: Vital Signs Temp Pulse Resp BP Pulse Ox 06/27/19 02:41 97.5 F 91 20 145/91 H 97 06/27/19 00:29 98 F 102 H 21 H 126/96 H 95 Date Exam was Performed: 06/27/19 Time Exam was Performed: 02:44 - My Orders Last 24 Hours: My Active Orders 06/27/19 00:40 CULTURE STREP A CONFIRMATION [RM] Stat STREP SCRN A RAPID W CULT CONF [RM] Stat - Assessment/Plan Last 24 Hours: My Active Orders 06/27/19 00:40 CULTURE STREP A CONFIRMATION [RM] Stat STREP SCRN A RAPID W CULT CONF [RM] Stat
--- NOTE | 2019-06-27 02:31 | CR ---
Indication: Cough Technique: Chest 2 views Comparison: 05/15/2019 Findings/Impression: Cardiovascular and mediastinum: Heart size and vasculature are normal in caliber and appearance. Mediastinum is within normal limits. Lungs and pleural spaces: Lungs are clear. No sign of infiltrate or mass. No sign of pleural effusion. No pneumothorax. Bones and soft tissues: No significant findings. Dictated by Andrew Aguirre MD @ 06/27/2019 2:29:02 AM Dictated by: Andrew Aguirre MD @ 06/27/2019 02:29:07 (Electronically Signed)
== END 2019-06-27 02:47 | disposition home or self-care (01) ==
LOC: MW.ED 00:17
DX: J39.9 Disease of upper respiratory tract, unspecified (principal); B34.9 Viral infection, unspecified; I10 Essential (primary) hypertension; E66.9 Obesity, unspecified; F17.210 Nicotine dependence, cigarettes, uncomplicated; Z79.899 Other long term (current) drug therapy
CPT/HCPCS: 71046; 71046-26; 87081; 87804; 87880-QW; 99283; 99283-25

== ENCOUNTER 2019-07-17 15:05 | Emergency (ER) | payer OTHER ==
[2019-07-17] MEDS ORDERED: Aspirin 81 MG Tab.Chew PO ONE (15:11)
[2019-07-17] MEDS ORDERED: Heparin Sodium 5,000 Units/ML Vial IVPUSH PRN (15:11)
[2019-07-17] MEDS ORDERED: Clopidogrel 75 MG Tab PO ONE (15:11)
[2019-07-17] MEDS ORDERED: Sodium Chloride 0.9% 1,000 ML IV ONE (15:12)
[2019-07-17] MEDS ORDERED: Sodium Chloride 0.9% 10 ML Syringe FLUSH PRN (15:13)
[2019-07-17] MEDS ORDERED: Sodium Chloride 0.9% 2.5 ML Syringe FLUSH PRN (15:13)
[2019-07-17] MEDS ORDERED: Heparin Sod,Pork In 0.45% Nacl 25,000 UNIT/500 ML IV.SOLN IV SCH (15:15)
[2019-07-17] MEDS ORDERED: Heparin Sod,Pork In 0.45% Nacl 25,000 UNIT/500 ML IV.SOLN IV ONE (15:17)
[2019-07-17] MEDS ORDERED: Tenecteplase 50 MG Kit IV STA (15:19)
[2019-07-17] MEDS ORDERED: Morphine 2 MG/ML Syringe IVPUSH ONE (15:20)
[2019-07-17] MEDS ORDERED: Morphine 2 MG/ML Syringe ONE (15:20)
[2019-07-17] MEDS ORDERED: Tenecteplase 50 MG Kit ONE (15:21)
[2019-07-17] MEDS ORDERED: Metoprolol Tartrate 5 MG/5 ML SDV ONE ×2 (15:28→15:58)
[2019-07-17] MEDS ORDERED: Metoprolol Tartrate 5 MG/5 ML SDV IVPUSH ONE ×3 (15:30→15:57)
[2019-07-17] MEDS ORDERED: Ondansetron 4 MG/2 ML SDV IVPUSH ONE (15:34)
--- NOTE | 2019-07-17 15:42 | EDM.PDOC ---
ED HPI GENERAL MEDICAL PROBLEM - General Chief Complaint: Chest Pain Stated Complaint: CHEST PAIN Time Seen by Provider: 07/17/19 15:15 Source of Information: Reports: Patient History Limitations: Reports: No Limitations - History of Present Illness INITIAL COMMENTS - FREE TEXT/NARRATIVE: Patient is a 49-year-old male who is complaining of having chest discomfort which he describes as burning in intensity with radiation to both shoulders which started approximately 1130 this morning. Patient states he was diaphoretic earlier though does not feel so now. He rates his chest discomfort as a 4 out of 10 intensity. He has never had previously similar symptoms. He denies being short of breath. Patient denies any exertional component to his symptoms. Symptoms started at rest. Denies any bloody or tarry stools. He denies any swelling to his ankles or calfs. He denies having any cough or any respiratory symptoms. Patient did take a full aspirin at the onset of his symptoms. His risk is her being a cigarette smoker and hypertension. He has a negative family history and is prediabetic. He is not taking any medicines for elevated cholesterol. Onset: Today Duration: Hour(s): (3.5), Constant Location: Reports: Chest Severity: Mild Improves with: Reports: None Worsens with: Reports: None Associated Symptoms: Reports: Diaphoresis left chest Pain Score (Numeric/FACES): 5 - Related Data Allergies Allergy/AdvReac Type Severity Reaction Status Date / Time No Known Allergies Allergy Verified 07/17/19 15:11 Home Meds: Home Meds Lisinopril/Hydrochlorothiazide [Lisinopril-Hctz 20-12.5 mg Tab] 1 each PO BID [History] Fish Oil/[place]-3 Fatty Acids [Fish Oil 1,000 MG] 2 gm PO BID 03/09/18 [History] Sildenafil Citrate 100 mg PO ASDIRECTED PRN 03/09/18 [History] Past Medical History HEENT History: Reports: Hard of Hearing, Other (See Below) Other HEENT History: wears glasses Cardiovascular History: Reports: High Cholesterol, Hypertension Respiratory History: Reports: None Other Respiratory History: thinks he might have sleep apnea Gastrointestinal History: Reports: None Genitourinary History: Reports: None Neurological History: Reports: None Psychiatric History: Reports: None Endocrine/Metabolic History: Reports: Obesity/BMI 30+, Other (See Below) Other Endocrine/Metabolic History: 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 Hematologic History: Reports: None Immunologic History: Reports: None Oncologic (Cancer) History: Reports: None Dermatologic History: Reports: None - Infectious Disease History Infectious Disease History: Reports: Chicken Pox - Past Surgical History Head Surgeries/Procedures: Reports: None Musculoskeletal Surgical History: Reports: Other (See Below) Other Musculoskeletal Surgeries/Procedures:: Right knee surgery Social & Family History - Family History Family Medical History: Noncontributory - Tobacco Use Smoking Status *Q: Current Every Day Smoker Years of Tobacco use: 20 Packs/Tins Daily: 2 - Caffeine Use Caffeine Use: Reports: Tea - Recreational Drug Use Recreational Drug Use: No ED ROS GENERAL - Review of Systems Review Of Systems: Comprehensive ROS is negative, except as noted in HPI. ED EXAM, GENERAL - Physical Exam Exam: See Below Exam Limited By: No Limitations General Appearance: Alert Head: Atraumatic, Normocephalic Neck: Normal Inspection Respiratory/Chest: No Respiratory Distress, Lungs Clear, Normal Breath Sounds. No: Crackles, Rales, Wheezing Cardiovascular: Normal Peripheral Pulses, Regular Rate, Rhythm, No Edema, No JVD GI/Abdominal: Normal Bowel Sounds, Soft, Non-Tender, No Organomegaly Back Exam: Normal Inspection Extremities: Normal Inspection, No Pedal Edema Neurological: Alert, Oriented Psychiatric: Normal Affect Skin Exam: Warm, Dry, Normal Color Course - Vital Signs Text/Narrative:: Patient's EKG shows him that he having an acute inferior wall [place]. He has [address] elevation in inferior leads with some reciprocal changes of T wave inversion in the lateral leads and and V2. STEMI protocol was started with a call to [facility] and to the hospital. Patient had taken aspirin earlier so was not given a second dose. He will be given Plavix and TNK and is being started on heparin protocol. His blood pressure remains very elevated with a diastolic being as high as 130 and I have given him 2 doses of Lopressor. Patient is also being given some IV fluid and we have external pacer pads on him. She was discussed with Dr. Ling at [place] who is accepted him for transfer. We have faxed initial EKG to them. With the above interventions patient is feeling better and states his discomfort has decreased to a 1-2 out of 10 in intensity. Shortly after TNKase he was throwing frequent PVCs though this seems to have calm down at this time. Patient's initial troponin is 0.365. Flight staff is aware of this. Patient's frequent PVCs have decreased and currently is not having any. Last Recorded V/S: Last Vital Signs Temp 36.8 C 07/17/19 15:44 Pulse 82 07/17/19 16:00 Resp 17 07/17/19 15:44 BP 179/117 H 07/17/19 16:00 Pulse Ox 97 07/17/19 15:44 - Orders/Labs/Meds Labs: Laboratory Tests 07/17/19 07/17/19 07/17/19 Range/Units 15:10 15:10 15:10 WBC 8.90 (4.0-11.0) K/uL RBC 5.10 (4.50-5.90) M/uL Hgb 16.5 (13.0-17.0) g/dL Hct 46.7 (38.0-50.0) % MCV 91.6 (80.0-98.0) fL MCH 32.4 H (27.0-32.0) pg MCHC 35.3 (31.0-37.0) g/dL RDW Std Deviation 48.0 (28.0-62.0) fl RDW Coeff of Dori 14 (11.0-15.0) % Plt Count 206 (150-400) K/uL MPV 11.00 (7.40-12.00) fL Neut % (Auto) 72.2 (48.0-80.0) % Lymph % (Auto) 22.2 (16.0-40.0) % [place] % (Auto) 4.4 (0.0-15.0) % Eos % (Auto) 1.0 (0.0-7.0) % Baso % (Auto) 0.2 (0.0-1.5) % Neut # (Auto) 6.4 H (1.4-5.7) K/uL Lymph # (Auto) 2.0 (0.6-2.4) K/uL [place] # (Auto) 0.4 (0.0-0.8) K/uL Eos # (Auto) 0.1 (0.0-0.7) K/uL Baso # (Auto) 0.0 (0.0-0.1) K/uL Nucleated RBC % 0.0 /100WBC Nucleated RBCs # 0 K/uL INR 0.93 Sodium 136 (136-148) mmol/L Potassium 3.8 (3.5-5.1) mmol/L Chloride 98 (98-107) mmol/L Carbon Dioxide 27.5 (21.0-32.0) mmol/L BUN 17 (7.0-18.0) mg/dL Creatinine 1.2 (0.8-1.3) mg/dL Est Cr Clr Drug Dosing 74.46 mL/min Estimated GFR (MDRD) > 60.0 ml/min Glucose 333 H (74-106) mg/dL Calcium 9.6 (8.5-10.1) mg/dL Total Bilirubin 0.3 (0.2-1.0) mg/dL AST 41 H (15-37) IU/L ALT 89 H (14-63) IU/L Alkaline Phosphatase 91 (46-116) U/L Troponin I 0.365 H* (0.000-0.056) ng/mL Total Protein 7.9 (6.4-8.2) g/dL Albumin 3.8 (3.4-5.0) g/dL Globulin 4.1 H (2.6-4.0) g/dL Albumin/Globulin Ratio 0.9 (0.9-1.6) Meds: Medications Discontinued Medications Generic Name Dose Route Start Last Admin Trade Name Freq PRN Reason Stop Dose Admin Aspirin 324 mg 07/17/19 15:11 07/17/19 15:29 Aspirin PO 07/17/19 15:12 Not Given ONETIME ONE Clopidogrel Bisulfate 600 mg 07/17/19 15:11 07/17/19 15:21 Plavix PO 07/17/19 15:12 600 mg ONETIME ONE Administration Heparin Sodium (Porcine) 4,000 units 07/17/19 15:11 07/17/19 15:28 Heparin Sodium IVPUSH 4,000 units .BOLUS PRN Administration Other Heparin Sodium/Sodium Chloride 25,000 unit in 500 mls @ 26.127 mls/hr 15:15 07/17/19 15:24 Heparin-1/2ns 25,000 Units/500 IV 12 units/kg/hr TITRATE VALORIE 26.127 mls/hr Administration Protocol 12 UNITS/KG/HR Sodium Chloride 1,000 mls @ 999 mls/hr 07/17/19 15:12 07/17/19 15:21 Normal Saline IV 07/17/19 16:12 999 mls/hr STAT ONE Administration Heparin Sodium/Sodium Chloride Confirm 07/17/19 15:17 07/17/19 15:29 Heparin-1/2ns 25,000 Units/500 Administered 07/17/19 15:18 Not Given Dose 25,000 unit in 500 mls @ as directed IV .STK-MED ONE Metoprolol Tartrate 5 mg 07/17/19 15:30 07/17/19 15:30 Lopressor IVPUSH 07/17/19 15:31 5 mg ONETIME ONE Administration Metoprolol Tartrate Confirm 07/17/19 15:28 07/17/19 15:31 Lopressor Administered 07/17/19 15:29 Not Given Dose 5 mg .ROUTE .STK-MED ONE Metoprolol Tartrate 5 mg 07/17/19 15:41 07/17/19 15:43 Lopressor IVPUSH 07/17/19 15:42 5 mg ONETIME ONE Administration Metoprolol Tartrate 5 mg 07/17/19 15:57 07/17/19 16:00 Lopressor IVPUSH 07/17/19 15:58 5 mg ONETIME ONE Administration Metoprolol Tartrate Confirm 07/17/19 15:58 07/17/19 17:01 Lopressor Administered 07/17/19 15:59 Not Given Dose 5 mg .ROUTE .STK-MED ONE Morphine Sulfate 2 mg 07/17/19 15:20 07/17/19 15:22 Morphine IVPUSH 07/17/19 15:21 2 mg ONETIME ONE Administration Morphine Sulfate Confirm 07/17/19 15:20 07/17/19 15:31 Morphine Administered 07/17/19 15:21 Not Given Dose 2 mg .ROUTE .STK-MED ONE Ondansetron HCl 4 mg 07/17/19 15:34 07/17/19 15:39 Zofran IVPUSH 07/17/19 15:35 4 mg ONETIME ONE Administration Sodium Chloride 10 ml 07/17/19 15:13 07/17/19 15:32 Saline Flush FLUSH 10 ml ASDIRECTED PRN Administration Keep Vein Open Sodium Chloride 2.5 ml 07/17/19 15:13 07/17/19 15:31 Saline Flush FLUSH 2.5 ml ASDIRECTED PRN Administration Keep Vein Open Tenecteplase 50 mg 07/17/19 15:19 07/17/19 15:31 Tnkase IV 07/17/19 15:20 50 mg NOW STA Administration Protocol Tenecteplase Confirm 07/17/19 15:21 07/17/19 15:31 Tnkase Administered 07/17/19 15:22 Not Given Dose 50 mg .ROUTE .[facility]-MED ONE Departure - Departure Time of Disposition: 15:49 Disposition: DC/Tfer to Acute Hospital 02 Reason for Transfer *Q: Other (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
[2019-07-17 15:48] LABS: BLOOD UREA NITROGEN,BUN 17 mg/dL (7.0-18.0); CARBON DIOXIDE,CO2 27.5 mmol/L (21.0-32.0); CHLORIDE,CL 98 mmol/L (98-107); GLUCOSE RANDOM 333 mg/dL (74-106); POTASSIUM,K 3.8 mmol/L (3.5-5.1); SODIUM,NA 136 mmol/L (136-148)
--- NOTE | 2019-07-17 16:00 | CR ---
Chest: Portable view of the chest was obtained. Comparison: Previous chest x-ray of 06/27/19. Heart size and mediastinum are within normal limits for portable technique. Lungs are clear with no acute parenchymal change. Bony structures are grossly intact. Impression: 1. Nothing acute is appreciated on portable chest x-ray. Diagnostic code #1 Study was dictated in [place] Standard Time
== END 2019-07-17 15:55 ==
LOC: MW.ED 15:05
DX: I21.19 ST elevation (STEMI) myocardial infarction involving other coronary artery of inferior wall (principal); I16.0 Hypertensive urgency; F17.210 Nicotine dependence, cigarettes, uncomplicated; I10 Essential (primary) hypertension; E78.00 Pure hypercholesterolemia, unspecified; E66.9 Obesity, unspecified; Z68.35 Body mass index [BMI] 35.0-35.9, adult; Z79.899 Other long term (current) drug therapy
CPT/HCPCS: 36415; 51702; 71045; 80053; 84484; 85025; 85610; 93005; 96365; 96375; 99285; A9270; J1644; J2270; J2405; J3101; J3490; J7030